=== PATIENT | male | born 1990 | race Caucasian/White ===

== ENCOUNTER → 2025-02-24 | Outpatient (CLI) | payer BC, SELFPAY ==
--- NOTE | 2025-02-24 11:48 | RAD_ITS ---
PROCEDURE: L/S SPINE MIN 4 VIEWS 02/24/2025 REASON FOR EXAM: RADICULOPATHY, LUMBAR REGION Sciatica left side. TECHNIQUE: L/S SPINE MIN 4 VIEWS COMPARISON: None FINDINGS: Four views of the lumbosacral spine were obtained and demonstrate normal mineralization of the osseous structures. There is no fracture of the sacrum. There are 5 lumbar-type vertebral bodies below the last set of paired ribs. The vertebral body heights are within normal limits. There is no spondylolysis. There is a proximally 2 mm of retrolisthesis of L5 in relationship to S1. The remaining vertebral body alignments are within the limits. There is slight disc space narrowing involving the L5-S1 disc space. There is minimal bony encroachment on the neural foramina at this level. The remaining disc spaces are well-maintained. Paravertebral soft tissue structures are unremarkable. RAD/L/S Spine Min 4 Views IMPRESSION: Degenerative disc disease involving the L5-S1 disc space with bony encroachment on the neural foramina at this level. Reading Location: [id number]
== END | disposition home or self-care (01) ==
LOC: RAD 11:45
PROVIDERS: PCP Nurse Practitioner Family; Referring Provider Chiropractor; Visit Provider Chiropractor
DX: M54.16 Radiculopathy, lumbar region (principal)
CPT/HCPCS: 72110